=== PATIENT | male | born 1985 | race Caucasian/White ===

== ENCOUNTER 2019-10-10 10:07 | Inpatient (IN) | payer OTHER ==
[2019-10-10] MEDS ORDERED: SODIUM CHLORIDE 0.9% 1,000 ML IV ONE ×2 (10:27→11:41)
[2019-10-10] MEDS ORDERED: SODIUM CHLORIDE 0.9% 500 ML 500 ML IV ONE (10:27)
--- NOTE | 2019-10-10 10:30 | ED ---
General Adult HPI - General Chief complaint: Alcohol Stated complaint: ETOH Time Seen by Provider: 10/10/19 10:10 Source: EMS, RN notes reviewed, old records reviewed Mode of arrival: EMS Limitations: no limitations - History of Present Illness Initial comments: This is a 33-year-old male who presents emergency Department with a history of testicular cancer. Patient states she is post have surgery to remove some of the lymph nodes in October. Patient states he is an alcoholic but he stopped drinking for 8 months and started about one month ago drinking a pint every day. Patient states he decided to go to rehab today. Patient went to rehab they t old him he was too drunk to be admitted to their facility. Patient was brought here by EMS. Patient states he has no bloody lives in town and his mother will not have anything to do with them so he is basically living in his car at this time. Patient denies any suicidal homicidal ideations. Patient states he has no new pain or symptoms from his cancer. She states she has completed his chemotherapy for his cancer - Related Data Home Medications Medication Instructions Recorded Confirmed Buprenorphine HCl/Naloxone HCl 1 film SL DIRECTED 10/10/19 10/10/19 [Suboxone 8 mg-2 mg Sl Film] Allergies Allergy/AdvReac Type Severity Reaction Status Date / Time cefaclor [From [facility]] Allergy Anaphylaxis Verified 10/10/19 11:01 Review of Systems ROS Statement: Those systems with pertinent positive or pertinent negative responses have been documented in the HPI. ROS Other: All systems not noted in ROS Statement are negative. Past Medical History Additional Past Medical History / Comment(s): Testicular CA History of Any Multi-Drug Resistant Organisms: None Reported Additional Past Surgical History / Comment(s): Testicular surgery Past Psychological History: Anxiety Smoking Status: Never smoker Past Alcohol Use History: Daily, Heavy Past Drug Use History: Prescription Drug Abuse General Exam - General Exam Comments Initial Comments: GENERAL: Patient is well-developed and well-nourished. Patient is nontoxic and well- hydrated and is in no acute distress but is very intoxicated. ENT: Neck is soft and supple. No significant lymphadenopathy is noted. Oropharynx is clear. Moist mucous membranes. Neck has full range of motion without eliciting any pain. EYES: The sclera were anicteric and conjunctiva were pink and moist. Extraocular movements were intact and pupils were equal round and reactive to light. Eyelids were unremarkable. PULMONARY: Unlabored respirations. Good breath sounds bilaterally. No audible rales rhonchi or wheezing was noted. CARDIOVASCULAR: There is a regular rate and rhythm without any murmurs gallops or rubs. ABDOMEN: Soft and nontender with normal bowel sounds. SKIN: Skin is clear with no lesions or rashes and otherwise unremarkable. NEUROLOGIC: Patient is alert and oriented x3. Cranial nerves II through XII are grossly intact. Motor and sensory are also intact. Normal speech, volume and content. Symmetrical smile. MUSCULOSKELETAL: Normal extremities with adequate strength and full range of motion. LYMPHATICS: No significant lymphadenopathy is noted PSYCHIATRIC: Normal psychiatric evaluation. Patient denies any suicidal homicidal ideations. Limitations: no limitations Course Vital Signs 10/10/19 10:09 Temperature 98.5 F Pulse Rate 88 Respiratory 18 Rate Blood Pressure 129/95 O2 Sat by Pulse 98 Oximetry Medical Decision Making - Medical Decision Making I spoke with Dr. Marino and he agreed to admit the patient admitted the patient wrote admitting orders. - Lab Data Result diagrams: 10/10/19 10:53 10/10/19 10:53 Lab Results 10/10/19 10/10/19 Range/Units 10:53 10:53 WBC 4.9 (3.8-10.6) k/uL RBC 4.54 (4.30-5.90) m/uL Hgb 14.4 (13.0-17.5) gm/dL Hct 42.5 (39.0-53.0) % MCV 93.6 (80.0-100.0) fL MCH 31.7 (25.0-35.0) pg MCHC 33.9 (31.0-37.0) g/dL RDW 13.8 (11.5-15.5) % Plt Count 171 (150-450) k/uL Neutrophils % 67 % Lymphocytes % 24 % Monocytes % 5 % Eosinophils % 1 % Basophils % 1 % Neutrophils # 3.3 (1.3-7.7) k/uL Lymphocytes # 1.2 (1.0-4.8) k/uL Monocytes # 0.2 (0-1.0) k/uL Eosinophils # 0.1 (0-0.7) k/uL Basophils # 0.0 (0-0.2) k/uL Sodium 143 (137-145) mmol/L Potassium 4.2 (3.5-5.1) mmol/L Chloride 102 (98-107) mmol/L Carbon Dioxide 27 (22-30) mmol/L Anion Gap 14 mmol/L BUN 14 (9-20) mg/dL Creatinine 0.63 L (0.66-1.25) mg/dL Est GFR (CKD-EPI)AfAm >90 (>60 ml/min/1.73 sqM) Est GFR (CKD-EPI)NonAf >90 (>60 ml/min/1.73 sqM) Glucose 97 (74-99) mg/dL Calcium 9.4 (8.4-10.2) mg/dL Magnesium 1.9 (1.6-2.3) mg/dL Total Bilirubin 0.6 (0.2-1.3) mg/dL AST 48 (17-59) U/L ALT 24 (4-49) U/L Alkaline Phosphatase 72 (38-126) U/L Total Protein 8.0 (6.3-8.2) g/dL Albumin 4.9 (3.5-5.0) g/dL Serum Alcohol 417 H* mg/dL Disposition Clinical Impression: Alcoholic intoxication Disposition: ADMITTED IP TO THIS HOSP Referrals: Nonstaff,Physician [Primary Care Provider] - 1-2 days Time of Disposition: 11:41
[2019-10-10] MEDS ORDERED: SODIUM CHLORIDE 0.9% 1,000 ML with MVI, ADULT NO.4 WITH VIT K 10 ML, THIAMINE 100 MG, F... IV ONE ×4 (11:00)
[2019-10-10 11:01] LABS: Basophils % (A) 1 %; Eosinophils # (A) 0.1 k/uL (0-0.7); Eosinophils % (A) 1 %; HCT 42.5 % (39.0-53.0); HGB 14.4 gm/dL (13.0-17.5); Lymphocytes # (A) 1.2 k/uL (1.0-4.8); Lymphocytes % (A) 24 %; MCH 31.7 pg (25.0-35.0); MCHC 33.9 g/dL (31.0-37.0); MCV 93.6 fL (80.0-100.0); Mean Platelet Volume 7.6; Monocytes # (A) 0.2 k/uL (0-1.0); Monocytes % (A) 5 %; Neutrophils # (A) 3.3 k/uL (1.3-7.7); Neutrophils % (A) 67 %; Platelet Count 171 k/uL (150-450); RBC 4.54 m/uL (4.30-5.90); RDW 13.8 % (11.5-15.5); WBC 4.9 k/uL (3.8-10.6)
[2019-10-10 11:09] LABS: ALT 24 U/L (4-49); AST 48 U/L (17-59); African American GFR (CKD) >90 (>60 ml/min/1.73 sqM); Albumin 4.9 g/dL (3.5-5.0); Alkaline Phosphatase 72 U/L (38-126); Anion Gap 14 mmol/L; Blood Urea Nitrogen 14 mg/dL (9-20); Calcium 9.4 mg/dL (8.4-10.2); Carbon Dioxide 27 mmol/L (22-30); Chloride 102 mmol/L (98-107); Glucose 97 mg/dL (74-99); Magnesium 1.9 mg/dL (1.6-2.3); Non-African American GFR(CKD) >90 (>60 ml/min/1.73 sqM); Potassium 4.2 mmol/L (3.5-5.1); Sodium 143 mmol/L (137-145); Total Bilirubin 0.6 mg/dL (0.2-1.3)
[2019-10-10 11:24] LABS: Alcohol 417 mg/dL
[2019-10-10] MEDS ORDERED: LORazepam 2 MG/ML INJ IV PRN (11:42)
[2019-10-10] MEDS ORDERED: THIAMINE 100 MG/ML 2 ML VIAL IM STA (11:42)
[2019-10-10] MEDS: LORazepam 2 MG/ML INJ IV PRN ×5 (14:29→23:56)
--- NOTE | 2019-10-10 14:58 | HP ---
HISTORY AND PHYSICAL CHIEF COMPLAINT: Alcoholism. HISTORY OF PRESENT ILLNESS: This is the first admission for this young man who came down from [facility] to be admitted to [place]. They refused him because he was intoxicated, and he came to the emergency room here. He will be admitted for detox. 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 This was removed. He is now facing advanced surgery at the [facility] on November 16. It is difficult to determine exactly what treatment he is going to have or has had. He may have had radiation therapy and chemotherapy. He is very depressed and does not want to discuss this. REVIEW OF SYSTEMS: He has had no blackouts, problems with vision or hearing, chest pain, shortness of breath, abdominal pain, nausea, vomiting, melena, hematochezia, urinary complaints, renal failure, etc. Past medical history, family history, and personal and social histories reveal he is ALLERGIC to CEPHALOSPORINS. He is not taking any medication. Surgery is relative to the left testicle. He does not smoke. PHYSICAL EXAMINATION: Blood pressure is 136/90 with a pulse of 87, respirations of 32, and he is afebrile. In general he appeared to be well developed, well nourished, in no acute distress. Skin color was normal. Skin was warm and dry. Lymph nodes were not enlarged. Head, ears, eyes, nose, mouth and throat were normal. Neck veins were not distended. Thyroid was not enlarged. Chest was clear and the cardiac exam demonstrated sinus rhythm and no murmurs or extra sounds. Abdomen was soft and nontender. Extremities was normal. Neurologically he was intact. ADMITTING DIAGNOSES: 1. Chronic alcoholism. 2. Delirium tremens. 3. History of carcinoma of the left testicle. PLAN: 1. Bed rest. 2. IV fluids. 3. CIWA protocol. MMODL / IJN: [id number] /
[2019-10-10] MEDS: THIAMINE 100 MG TAB PO SCH (16:33)
[2019-10-10] MEDS ORDERED: ACETAMINOPHEN TAB 325 MG TAB PO PRN (20:53)
[2019-10-10] MEDS ORDERED: ONDANSETRON 4 MG/2 ML VIAL IVP PRN (20:53)
[2019-10-11] MEDS: LORazepam 2 MG/ML INJ IV PRN ×12 (01:48→23:38)
[2019-10-11] MEDS: THIAMINE 100 MG TAB PO SCH ×2 (09:01→18:02)
[2019-10-11] MEDS ORDERED: NON FORMULARY DRUG (Buprenorphine Hcl/Naloxone Hcl [Suboxone 8 Mg-2 Mg Sl Film] 1 FILM) SL SCH (12:30)
[2019-10-11] MEDS: NICOTINE 21MG/24HR PATCH TRANSDERM SCH (23:38)
--- NOTE | 2019-10-11 23:43 | PN ---
PROGRESS NOTE CHIEF COMPLAINT: Alcoholism and DTs. HISTORY OF PRESENT ILLNESS: This gentleman has developed significant tremors. He has had no diplopia or blackouts. PHYSICAL EXAMINATION: Chest is clear. Cardiac exam is normal. Abdomen is soft. IMPRESSION: 1. Delirium tremens. 2. Alcoholism. 3. Carcinoma of the left testicle. PLAN: Continue with detox program. MMODL / IJN: [id number] /
[2019-10-12] MEDS: LORazepam 2 MG/ML INJ IV PRN ×8 (01:03→22:21)
[2019-10-12] MEDS: THIAMINE 100 MG TAB PO SCH ×2 (08:40→17:51)
[2019-10-12] MEDS: NICOTINE 21MG/24HR PATCH TRANSDERM SCH (08:40)
--- NOTE | 2019-10-12 19:46 | PN ---
PROGRESS NOTE CHIEF COMPLAINT: Alcoholism, DTs and carcinoma of the testicle. HISTORY OF PRESENT ILLNESS: This gentleman is still a little bit tremulous, but he is doing a little bit better. PHYSICAL EXAMINATION: Chest is clear. Cardiac exam is normal. Abdomen is soft. Still has a slight tremor. IMPRESSION: 1. Alcoholism. 2. Delirium tremens. 3. Carcinoma of the testicle. PLAN: Continue program and he may be able to return to [place] tomorrow. MMODL / IJN: [id number] /
[2019-10-13] MEDS: LORazepam 2 MG/ML INJ IV PRN ×2 (01:43→12:05)
[2019-10-13] MEDS: THIAMINE 100 MG TAB PO SCH (08:59)
[2019-10-13] MEDS: NICOTINE 21MG/24HR PATCH TRANSDERM SCH (08:59)
[2019-10-13 11:56] VITALS: BP 102/63; PULSE 88; RESP 17; TEMP 98.5
--- NOTE | 2019-10-14 06:48 | DS ---
DISCHARGE SUMMARY CHIEF COMPLAINT: 1. Acute alcohol intoxication. 2. Alcoholism. 3. CA of the testicle. HISTORY OF PRESENT ILLNESS AND PHYSICAL EXAM: Details of this man's history and physical can be found in the initial workup. COURSE IN THE HOSPITAL: After admission, he was placed on bedrest, started on CIWA protocol. He did have problems with DTs, but these stabilize without a lot of difficulty. He was doing well. It was felt that he could be discharged on and he will go home on his usual activity, diet and medications including Suboxone. It was thought that he might be going to [place], but apparently he will be going home first. He will follow up with us in several days. FINAL DIAGNOSES: 1. Acute alcohol intoxication. 2. Chronic alcoholism. 3. Delirium tremens. 4. History of carcinoma of the left testicle. OPERATIONS: None. CONSULTATIONS: None. He is improved. MMODL / FAUSTINON: [id number] /
== END 2019-10-13 15:55 | disposition home or self-care (01) | DRG 897 ==
LOC: EC 10:07 → 4SSUR 11:41 → 5NMEDONC 11:56 → OBSVTOIN 10-12 10:36
PROVIDERS: ADMIT Family Medicine; ATTEND Family Medicine
DX: F10.231 Alcohol dependence with withdrawal delirium (principal); F32.9 Major depressive disorder, single episode, unspecified; Z88.1 Allergy status to other antibiotic agents; Z85.47 Personal history of malignant neoplasm of testis; Z92.21 Personal history of antineoplastic chemotherapy
CPT/HCPCS: 36415; 80053; 80320; 83735; 85025; 96361; 96365; 96372; 99285